=== PATIENT | male | born 1950 | race Caucasian/White ===

== ENCOUNTER → 2017-07-31 | Outpatient (CLI) | payer OTHER ==
[~2017-07-31] MED LIST: ASPI-621 PO; CARV-39 PO; CARV6.2512 PO; CARV6.252 PO; DOCU-131 PO; FURO-92 PO; FURO-93 PO; LISI-170 PO; OXYC5TAB3 PO; POTA20TA14 PO; POTA99TA2 PO; WARF10TA6 PO-COUM
== END ==
LOC: CFH 09:38
PROVIDERS: ATTEND Internal Medicine Cardiovascular Disease
DX: I08.0 Rheumatic disorders of both mitral and aortic valves (principal); I10 Essential (primary) hypertension; I48.91 Unspecified atrial fibrillation; Z95.2 Presence of prosthetic heart valve; Z98.890 Other specified postprocedural states
CPT/HCPCS: 93306

== ENCOUNTER 2017-10-04 13:56 | Observation (INO) | payer OTHER ==
[~2017-10-04] VITALS: Ht 172.7 cm; Wt 83.6 kg
[~2017-10-04 13:56] MED LIST changes: +WARF10TA43 PO-COUM; -WARF10TA6 PO-COUM
[2017-10-04] MEDS ORDERED: CARV12.543 PO (14:27)
[2017-10-04] MEDS ORDERED: LISI40TA PO (14:27)
[2017-10-04] MEDS ORDERED: APIX5TAB PO (14:27)
[2017-10-04] MEDS ORDERED: CHLO25TA PO (14:27)
[2017-10-04] MEDS ORDERED: FENTANYL PF 100 MCG/2ML ONE (14:45)
[2017-10-04] MEDS ORDERED: FENTANYL PF 100 MCG/2ML IVPush PRN (15:00)
[2017-10-04] MEDS ORDERED: SODIUM CHLORIDE 0.9%, 500ML IVBOLUS ONE (15:30)
[2017-10-04] MEDS ORDERED: HYDROcodone/APAP 5/325 TABLET PO PRN (17:30)
[2017-10-04] MEDS ORDERED: PROMETHAZINE 25 MG/ML, 1ML IM PRN (17:30)
[2017-10-04] MEDS ORDERED: ONDANSETRON ODT 4 MG PO PRN (17:30)
[2017-10-04] MEDS ORDERED: ENOXAPARIN 40 MG/0.4 ML SQ SCH (17:30)
[2017-10-04] MEDS ORDERED: ACETAMINOPHEN 325 MG TABLET PO PRN (18:00)
[2017-10-04 18:14] VITALS: BP 97/69
[2017-10-04 18:42] LABS: BASOPHILS # (AUTO) 0.07 x10^3/uL (0-0.1); BASOPHILS % (AUTO) 1 % (0-1); EOSINOPHILS # (AUTO) 0.04 x10^3/uL (0-0.4); EOSINOPHILS % (AUTO) 1 % (1-7); LYMPHOCYTES # (AUTO) 1.29 x10^3/uL (1-3.4); LYMPHOCYTES % (AUTO) 15 % (22-44); MD NO; MEAN CORPUSCULAR HEMOGLOBIN 25.3 pg (27.5-34.5); MEAN CORPUSCULAR HGB CONC 32.9 g/dL (33.2-36.2); MEAN CORPUSCULAR VOLUME 76.8 fL (81-97); MEAN PLATELET VOLUME 8.2 fL (7.4-10.4); MONOCYTES # (AUTO) 0.87 x10^3/uL (0.2-0.8); MONOCYTES % (AUTO) 10 % (2-9); NEUTROPHILS # (AUTO) 6.26 x10^3/uL (1.8-6.8); NEUTROPHILS % (AUTO) 73 % (42-75); PLATELET COUNT 477 x10^3/uL (130-400); RED BLOOD COUNT 3.88 x10^6/uL (4.38-5.82)
[2017-10-04 19:19] LABS: HCT (SEDRATE) 29.8 % (39.2-51.8)
[2017-10-04 20:10] VITALS: BP 89/56
[2017-10-04 20:15] VITALS: BP 86/60
[2017-10-04] MEDS: PREGABALIN 75 MG CAPSULE PO SCH ×2 (21:00→21:22)
[2017-10-04] MEDS: CARVEDILOL 12.5 MG TABLET PO SCH (21:00)
[2017-10-04] MEDS: APIXABAN 5 MG TABLET PO SCH (21:12)
[2017-10-05 02:04] VITALS: BP 99/63
[2017-10-05 05:47] LABS: BASOPHILS # (AUTO) 0.03 x10^3/uL (0-0.1); BASOPHILS % (AUTO) 0 % (0-1); EOSINOPHILS # (AUTO) 0.05 x10^3/uL (0-0.4); EOSINOPHILS % (AUTO) 1 % (1-7); LYMPHOCYTES # (AUTO) 0.89 x10^3/uL (1-3.4); LYMPHOCYTES % (AUTO) 11 % (22-44); MD NO; MEAN CORPUSCULAR HEMOGLOBIN 25.4 pg (27.5-34.5); MEAN CORPUSCULAR HGB CONC 33.3 g/dL (33.2-36.2); MEAN CORPUSCULAR VOLUME 76.3 fL (81-97); MEAN PLATELET VOLUME 8.4 fL (7.4-10.4); MONOCYTES # (AUTO) 0.88 x10^3/uL (0.2-0.8); MONOCYTES % (AUTO) 11 % (2-9); NEUTROPHILS # (AUTO) 6.12 x10^3/uL (1.8-6.8); NEUTROPHILS % (AUTO) 77 % (42-75); PLATELET COUNT 411 x10^3/uL (130-400); RED BLOOD COUNT 3.46 x10^6/uL (4.38-5.82); RED CELL DISTRIBUTION WIDTH 15.9 % (9.4-14.8)
[2017-10-05 05:53] LABS: ALBUMIN 1.8 g/dL (3.4-5.0); CHLORIDE 104 mmol/L (98-107)
[2017-10-05 05:58] LABS: ALANINE AMINOTRANSFERASE 47 U/L (12-78); ALKALINE PHOSPHATASE 117 U/L (45-117); ANION GAP 11 mmol/L (5-15); BILIRUBIN,TOTAL 0.4 mg/dL (0.2-1.0); CALCIUM 8.1 mg/dL (8.5-10.1); CREATININE 1.48 mg/dL (0.7-1.3); TOTAL PROTEIN 6.3 g/dL (6.4-8.2)
[2017-10-05 06:32] LABS: MICROSCOPIC NOT IND
[2017-10-05 06:35] LABS: CULTURE INDICATED? NO
[2017-10-05 07:53] LABS: % IRON SATURATION 9 % (20-55); IRON LEVEL 13 mcg/dL (65-175); TOTAL IRON BINDING CAPACITY 144 mcg/dL (250-450)
[2017-10-05 08:27] VITALS: BP 90/53
[2017-10-05] MEDS: PREGABALIN 75 MG CAPSULE PO SCH (08:29)
[2017-10-05] MEDS: CARVEDILOL 12.5 MG TABLET PO SCH (08:29)
[2017-10-05] MEDS: APIXABAN 5 MG TABLET PO SCH (08:29)
[2017-10-05] MEDS ORDERED: IRON DEXTRAN IV PER PHARMACY IV PRN (09:30)
[2017-10-05] MEDS ORDERED: IRON SUCROSE COMPLEX 100MG/5ML IV SCH (10:00)
[2017-10-05 13:05] VITALS: BP 88/51
[2017-10-05 13:16] VITALS: BP 92/55
[2017-10-05] MEDS ORDERED: PREG75CA PO (16:07)
[2017-10-05] MEDS ORDERED: CARVEDILOL 6.25 MG TABLET PO SCH (21:00)
[2017-10-05] MEDS ORDERED: CARVEDILOL 3.125 MG TABLET PO SCH (21:00)
[2017-10-08 16:50] LABS: ANA SCREEN NEGATIVE (Negative)
== END 2017-10-05 17:55 | disposition home or self-care (01) ==
LOC: ED 15:00 → INTOOBSV 15:59 → EDIP 15:59 → 4EST 17:52
PROVIDERS: ADMIT Internal Medicine; ATTEND Internal Medicine
DX: M79.1 Myalgia (principal); I95.9 Hypotension, unspecified; I48.91 Unspecified atrial fibrillation; I50.9 Heart failure, unspecified; N18.9 Chronic kidney disease, unspecified; D50.9 Iron deficiency anemia, unspecified; D68.59 Other primary thrombophilia
CPT/HCPCS: 36415; 76770; 80053; 81003; 82550; 83540; 83550; 83735; 84100; 85025; 85651; 86038; 86140; 86200; 86430; 87040; 87476; 93005; 96361; 96374; 96375; 99285; G0378; J1756; J3010; J7040; J7512